=== PATIENT | male | born 1930 | race Caucasian/White ===

== ENCOUNTER 2017-02-09 13:10 | Emergency (ER) | payer MEDICARE, OTHER ==
[~2017-02-09] VITALS: Ht 167.6 cm; Wt 68.2 kg
[~2017-02-09 13:10] MED LIST: FLONASE; MULT-1007 PO
[2017-02-09 13:17] VITALS: BP 150/79; PULSE 56; RESP 18; O2SAT 99
--- NOTE | 2017-02-09 13:42 | ED.REPORT ---
HPI-Dyspnea / Wheezing Date of Service Feb 09, 2017 ED Provider: David Ngo MD 86 year old male with a history of asthma and GERD presents to the ER accompanied by his complaining of two weeks of persistent cough, with concern for developing pneumonia. His cough is intermittently productive, and he reports nasal drainage into his throat at night. Patient denies fever, sore throat, vomiting, diarrhea, history of smoking, and any significant underlying pulmonary disease. Nursing Notes Stated Complaint: COUGH Chief Complaint: General Complaint Nursing Notes Reviewed: Yes Allergies: Uncoded Allergies: FOSSIL FUEL PRODUCTS (Allergy, Severe, CONGESTION, 02/03/13) Scheduled FLUTICASONE-Expunged Drug, Do Not Renew! (FLONASE-Expunged Drug, Do Not Renew!) 120 Sprays/16 Gm Aero 120 SPRAYS NA PRN Multivitamin (Multi-Vitamin Daily) 1 Each Tablet 1 EACH PO DAILY General Time Seen by MD: 13:29 Chief Complaint Cough Hx Obtained From: Patient Arrived By: Walk-in Sudden in Onset?: No Onset Occurred: More than a week ago... (2 weeks) Symptom Duration: Since onset Associated with: Denies: Chest pain, Fever, Nausea, Vomiting Pertinent Negative: Pt denies other symptoms Context Asthma History: Asthma diagnosed Similar Sx Previous: No Past Medical History Past Medical History Denies NM Reports: Asthma, GERD, Denies: Cancer, Coronary artery disease, Diabetes mellitus Smoking History Never Smoker Social History Alcohol Use: Denies alcohol use Other Social History: Good social support, Ambulatory Status Cane Review of Systems Constitutional: Denies: Chills, Fever Respiratory: Reports: Non-productive cough, Prod cough, clear Cardiovascular: Denies: Chest pain Complete sys rev & neg: except as marked. GI: Denies: Abdominal pain, Diarrhea, Nausea, Vomiting Physical Exam Initial Vital Signs Vital Signs (First) Date Time Temp Pulse Resp B/P Pulse Ox O2 Delivery O2 Flow Rate FiO2 02/09/17 13:17 35.9 56 18 150/79 99 Room Air Initial VS: Reviewed Head / Eyes: Atraumatic, Normocephalic Abdomen / GI: Soft, Non-tender, No guarding, No rebound, No distention Skin: Warm, Dry, No cyanosis Neurologic: Alert, Oriented, Nonfocal General/Constitutional: Awake, Alert, Well developed, Well nourished Neck: Atraumatic, Supple, No meningismus, Full range of motion, No adenopathy, No swelling, Non-tender, No masses Respiratory / Chest: Breath sounds NL, Breath sounds = bilat, No respiratory distress, No rales, No rhonchi, No wheezing, No retractions, No stridor Cardiovascular: Heart rate NL, Regular rhythm, Heart sounds NL, Peripheral circulation NL Lower Extremity / Pelvis / MS: Full range of motion, Neurologic intact, Vascular intact Left Hip: Positive: ROM reduced... (Internal rotation painful) Re-Eval/Medical Decision Re-Evaluation/Progress : Time of Eval: 13:37 Re-Evaluation/Progress Note: Discussed physical examination findings and plan to discharge. Patient is amenable to the plan. Return precautions given. All other questions addressed. Counseled Regarding: Diagnosis, Need for follow-up, When/why to return to ED Discharge & Departure Impression: Primary Impression: Cough Disposition: Home Discharge Condition All VS Reviewed: Yes Condition: Stable Patient Instructions: Chronic Cough (ED) Additional Instructions: Your workup today was reassuring. I do not believe that you are developing pneumonia at this time. 150mg Zantac morning and night (2 pills each time). Take Tessalon Perles as directed. Try using a Neti pot to see if symptoms improve. Drink plenty of fluids. Call your primary care provider to arrange a follow-up appointment in 1-2 days. Return to the ER if you develop new or worsening cough, coughing up blood, fever , chills, chest pain, shortness of breath, or any other concerning symptoms. [facility] Att[facility] Portions of this note were transcribed by Dominik Wagner. I, Dr. Ngo, personally performed the history, physical exam and medical decision-making; I reviewed and confirmed the accuracy of the information in the transcribed note. Signed by: Osman Phillips, 02/09/2017 and 13:47 copies to: [facility] David Ngo MD Feb 09, 2017 13:41 DOMINIK WAGNER Feb 09, 2017 13:47
[2017-02-09] MEDS ORDERED: BENZ-12 PO (13:56)
[2017-02-09 14:01] VITALS: BP 150/79; PULSE 56; RESP 18; O2SAT 99
== END 2017-02-09 14:07 | disposition home or self-care (01) ==
LOC: SED 13:10
DX: R05 Cough (principal); J45.909 Unspecified asthma, uncomplicated; K21.9 Gastro-esophageal reflux disease without esophagitis

== ENCOUNTER 2017-03-25 20:05 | Emergency (ER) | payer MEDICARE ==
[~2017-03-25] VITALS: Ht 165.1 cm; Wt 69.5 kg
[~2017-03-25 20:05] MED LIST changes: +BENZ-12 PO
[2017-03-25 20:08] VITALS: BP 108/61; PULSE 73; RESP 16; O2SAT 100
== END 2017-03-25 22:43 | disposition left against medical advice (07) ==
LOC: SED 20:05
DX: B02.9 Zoster without complications (principal); Z53.21 Procedure and treatment not carried out due to patient leaving prior to being seen by health care provider